=== PATIENT | male | born 1955 | race Two or more races ===

== ENCOUNTER 2024-09-06 21:47 | Emergency (ER) | payer OTHER, MEDICAID ==
[~2024-09-06] VITALS: Ht 170.2 cm; Wt 86.4 kg
--- NOTE | 2024-09-06 22:00 | ED.PDOC ---
History of Present Illness HPI Comments 69 year old male with a Hx of Liver Cirrhosis, HTN, DM, and RA was BIBA for the c/c of Neck/Head pain and a Hematoma to the Right Temporal Region after experiencing a Mechanical fall. Pt states he fell on the way to his car, EMS notes pts blood pressure is 141/68. Pt is noted to be A&Ox4 and answering questi ons appropriately, denies LOC. No other associated symptoms, modifiers, recent injuries or sick contacts present at this time. Time Seen by MD: 21:52 Reviewed Notes: Nurses Notes, Document Control Assistant Notes, Medications, Allergies Information Source: Patient, Emergency Med Personnel Mode of Arrival: EMS Severity: Moderate Timing: Hours Duration: Since onset, Hours Prehospital treatment: 12 Lead EKG, Oxygen Past Medical History PAST MEDICAL HISTORY: DM, HTN, Liver Past Medical History (Other): RA Surgical History: Denies all surgeries Family History Family History: Unknown Social History Smoker: Non-Smoker Alcohol: Denies ETOH Use Drugs: Denies Drug Use Lives In: Home Constitutional: denies: chills, diaphoresis, fatigue, fever, malaise, sweats, weakness, others EENTM: denies: blurred vision, double vision, ear bleeding, ear discharge, ear drainage, ear pain, ear ringing, eye pain, eye redness, hearing loss, mouth pain, mouth swelling, nasal discharge, nose bleeding, nose congestion, nose pain, photophobia, tearing, throat pain, throat swelling, voice changes, others Respiratory: denies: cough, hemoptysis, orthopnea, SOB at rest, shortness of breath, SOB with excertion, stridor, wheezing, others Cardiovascular: denies: chest pain, dizzy spells, diaphoresis, Dyspnea on exertion, edema, irregular heart beat, left arm pain, lightheadedness, palpitations, PND, syncope, others Gastrointestinal: denies: abdomen distended, abdominal pain, blood streaked bowels, constipated, diarrhea, dysphagia, difficulty swallowing, hematemesis, melena, nausea, poor appetite, poor fluid intake, rectal bleeding, rectal pain, vomiting, others Genitourinary: denies: burning, dysuria, flank pain, frequency, hematuria, incontinence, penile discharge, penile sore, pain, testicle pain, testicle swelling, urgency, others Neurological: denies: dizziness, fainting, headache, left sided numbness, left sided weakness, numbness, paresthesia, pre-existing deficit, right sided numbness, right sided weakness, seizure, speech problems, tingling, tremors, weakness, others Musculoskeletal: reports: neck pain; denies: back pain, gout, joint pain, joint swelling, muscle pain, muscle stiffness, others Integumetry: denies: bruises, change in color, change in hair/nails, dryness, laceration, lesions, lumps, rash, wounds, others Allergic/Immunocompromised: denies: Difficulty Healing, Frequent Infections, Hives, Itching, others Hematologic/Lymphatic: denies: anemia, blood clots, easy bleeding, easy bruising, swollen glands, others Endocrine: denies: excessive hunger, excessive sweating, excessive thirst, excessive urination, flushing, intolerance to cold, intolerance to heat, unexplained weight gain, unexplained weight loss, others Psychiatric: denies: anxiety, bipolar disorder, depression, hopeless, panic disorder, schizophrenia, sleepless, suicidal, others All Other Systems: Reviewed and Negative Physical Exam General Appearance: Mild Distress, Normal HEENT: Head (Hematoma notes to the right temporal region of the head ), Normal ENT Inspection, Pharynx Normal, TMs Normal Neck: Full Range of Motion, Non-Tender, Normal, Normal Inspection Respiratory: Chest Non-Tender, Lungs Clear, No Accessory Muscle Use, No Respiratory Distress, Normal Breath Sounds Cardiovascular: No Edema, No JVD, No Murmur, No Gallop, Normal Peripheral Pulses, Regular Rate/Rhythm Breast Exam: Deferred Gastrointestinal: No Organomegaly, Non Tender, No Pulsatile Mass, Normal Bowel Sounds, Soft Genitalia: Deferred Pelvic: Deferred Rectal: Deferred Extremities: No calf tenderness, Normal capillary refill, Normal inspection, Normal range of motion, Non-tender, No pedal edema Musculoskeletal : Apperance: Normal Neurologic: Alert, No Motor Deficits, Normal Affect, Normal Mood, No Sensory Deficits Cerebellar Function: Normal Reflexes: Normal Skin: Dry, Normal Color, Warm Lymphatic: No Adenopathy Was a procedure done? Was a procedure done?: No Differential Dx Considerations may include: Differential diagnosis includes but not limited to: intracranial hemorrhage, Bony fracture, dislocation, compartment syndrome, nerve injury, vascular injury and others X-Ray, Labs, Meds, VS Vital Signs Date Time Temp Pulse Resp B/P (MAP) Pulse Ox O2 Delivery O2 Flow Rate FiO2 09/07/24 00:45 98.3 60 12 127/58 (81) 98.3 09/07/24 00:36 60 12 127/58 09/07/24 00:06 62 11 122/50 09/07/24 00:00 98.1 61 11 122/50 (74) 99 98.1 09/07/24 00:00 Room Air* 0 21 09/06/24 21:55 98.3 63 14 141/68 (92) 99 98.3 09/06/24 21:53 60 Current Medications Medications (Trade) Dose Ordered Sig/Rico Route Start Time Stop Time Status Last Admin Ondansetron HCl (Zofran) 4 mg ONCE ONCE IV 09/06/24 23:00 09/06/24 23:01 DC 09/07/24 00:05 Morphine Sulfate 4 mg ONCE ONCE IV 09/06/24 23:45 09/06/24 23:46 DC 09/07/24 00:06 PATIENT: HELENA WADE ACCT: [id number] UNIT: [id number] : 1955 LOC: ER ROOM / BED: / AGE / SEX: 69 / M ADM STATUS: REG ER SERVICE 51 ORDERING PHYSICIAN: GABBY IYER MD PROCEDURE(s): HWOCT - HEAD WITHOUT CONTRAST REASON: head injury ORDER NUMBER(s): [id number], ACCESSION NUMBER(s): [id number] CT HEAD WITHOUT CONTRAST INDICATION: head injury COMPARISON: None TECHNIQUE: CT of the head without intravenous contrast. RADIATION DOSE: CTDIvol: mGy, DLP: mGy*cm FINDINGS: There is no evidence of intracranial hemorrhage, infarct, extra-axial collection, mass effect, midline shift, herniation or hydrocephalus. The ventricles, sulci and cisterns are normal. The chiu-white differentiation is normal. Considerable mucosal thickening with complete opacification of left sphenoid sinus; otherwise unremarkable. Mastoid air cells and middle ear cavities are clear. Soft tissues and osseous structures are unremarkable. IMPRESSION: No intracranial abnormality identified. ENT: HELENA WADE ACCT: [id number] UNIT: [id number] : 1955 LOC: ER ROOM / BED: / AGE / SEX: 69 / M ADM STATUS: REG ER SERVICE 51 ORDERING PHYSICIAN: GABBY IYER MD PROCEDURE(s): CS2 - CERVICAL WITHOUT CONTRAST REASON: trauma injury pain ORDER NUMBER(s): [id number], ACCESSION NUMBER(s): [id number] EXAM: CT CERVICAL WITHOUT CONTRAST HISTORY: trauma injury pain COMPARISON: None CTDIvol mGy, DLP mGy*cm. TECHNIQUE: Multiple axial CT images of the spine were obtained using bone algorithm. Axial and coronal reformatting was done. Bone and soft tissue windows were reviewed. FINDINGS: No prevertebral soft tissue abnormality noted. Mild straightening of the normal cervical lordosis. No listhesis. The cervical vertebral bodies demonstrate no evidence of fracture or dislocation. Large bridging anterior osteophytes noted from C2 to the upper thoracic spine. Paravertebral soft tissues appear unremarkable. Multilevel cervical spondylosis with mild spinal canal narrowing. IMPRESSION: No evidence of cervical spine fracture or dislocation. Time of 1ST Reevaluation: 22:22 Reevaluation 1ST: Unchanged Patient Education/Counseling: Diagnosis, Treatment, Need For Follow Up Family Education/Counseling: No Family Present SEPSIS Sepsis Screen Physician Orders Head Without Contrast (09/06/24 21:52) Cervical Without Contrast (09/06/24 21:52) Electrocardigram (09/06/24 22:02) Vital Signs Date Time Temp Pulse Resp B/P (MAP) Pulse Ox O2 Delivery O2 Flow Rate FiO2 09/07/24 00:45 98.3 60 12 127/58 (81) 98.3 09/07/24 00:36 60 12 127/58 09/07/24 00:06 62 11 122/50 09/07/24 00:00 98.1 61 11 122/50 (74) 99 98.1 09/07/24 00:00 Room Air* 0 21 09/06/24 21:55 98.3 63 14 141/68 (92) 99 98.3 09/06/24 21:53 60 Medications Medications Dose Ordered Sig/Rico Route Start Time Stop Time Status Last Admin Dose Admin Morphine Sulfate 4 mg ONCE ONCE IV 09/06/24 23:45 09/06/24 23:46 DC 09/07/24 00:06 Ondansetron HCl 4 mg ONCE ONCE IV 09/06/24 23:00 09/06/24 23:01 DC 09/07/24 00:05 Departure 1 Departure Time of Disposition: 00:20 Impression: Primary Impression: Cervical sprain Additional Impression: Head injury Disposition: HOME / SELF CARE / HOMELESS Condition: Stable Discharged With: Self Critical Care Note Critical Care Time?: No Stability Stability form required: No Heart Score Heart Score: Heart Score Response (Comments) Value History N/A 0 EKG N/A 0 Age N/A 0 Risk Factors N/A 0 Troponin N/A 0 Total 0 I personally scribed for GABBY IYER MD ([email or web address]) on 09/06/24 at 22:00. Electronically submitted by Howard Warner ([email or web address]). I personally scribed for GABBY IYER MD ([email or web address]) on 09/07/24 at 00:28. Electronically submitted by Howard Warner ([email or web address]). GABBY IYER MD Sep 06, 2024 22:00
[2024-09-06] MEDS ORDERED: HYDROcodone-ACET 10/325MG TAB PO ONE (23:00)
[2024-09-07] VITALS: O2SAT 99
[2024-09-07] MEDS: MORPHINE SULFATE 4 MG/ML SYR/VIAL IV ONE ×2 (00:04→00:06)
[2024-09-07] MEDS: ONDANSETRON HCL 4 MG/2 ML VIAL IV ONE (00:05)
--- NOTE | 2024-09-07 00:08 | DVH ---
CT HEAD WITHOUT CONTRAST INDICATION: head injury COMPARISON: None TECHNIQUE: CT of the head without intravenous contrast. RADIATION DOSE: CTDIvol: mGy, DLP: mGy*cm FINDINGS: There is no evidence of intracranial hemorrhage, infarct, extra-axial collection, mass effect, midli ne shift, herniation or hydrocephalus. The ventricles, sulci and cisterns are normal. The chiu-white differentiation is normal. Considerable mucosal thickening with complete opacification of left spheno id sinus; otherwise unremarkable. Mastoid air cells and middle ear cavities are clear. Soft tissues a nd osseous structures are unremarkable. IMPRESSION: No intracranial abnormality identified.
--- NOTE | 2024-09-07 00:13 | DVH ---
EXAM: CT CERVICAL WITHOUT CONTRAST HISTORY: trauma injury pain COMPARISON: None CTDIvol mGy, DLP mGy*cm. TECHNIQUE: Multiple axial CT images of the spine were obtained using bone algorithm. Axial and coron al reformatting was done. Bone and soft tissue windows were reviewed. FINDINGS: No prevertebral soft tissue abnormality noted. Mild straightening of the normal cervical lordosis. No listhesis. The cervical vertebral bodies demonstrate no evidence of fracture or dislocation. Large b ridging anterior osteophytes noted from C2 to the upper thoracic spine. Paravertebral soft tissues ap pear unremarkable. Multilevel cervical spondylosis with mild spinal canal narrowing. IMPRESSION: No evidence of cervical spine fracture or dislocation.
[2024-09-07 00:45] VITALS: BP 127/58; PULSE 60; RESP 12; TEMP 98.3
--- NOTE | 2024-09-09 06:07 | ECG ---
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
== END 2024-09-07 00:45 | disposition home or self-care (01) ==
LOC: ER 21:47 → EDBD 21:47 → ER 09-07 00:45
DX: S13.4XXA Sprain of ligaments of cervical spine, initial encounter (principal); S09.90XA Unspecified injury of head, initial encounter; E11.9 Type 2 diabetes mellitus without complications; I10 Essential (primary) hypertension; Z79.899 Other long term (current) drug therapy; W19.XXXA Unspecified fall, initial encounter; Y93.89 Activity, other specified; Y92.89 Other specified places as the place of occurrence of the external cause; Y99.8 Other external cause status
CPT/HCPCS: 70450; 72125; 82947; 96374; 96375; 99285; J2270; J2405; 93005